=== PATIENT | female | born 2000 | race African-American/Black ===

== ENCOUNTER 2019-08-21 12:37 | Emergency (ER) | payer OTHER ==
[~2019-08-21] VITALS: Ht 165.1 cm; Wt 72.7 kg
[2019-08-21 12:44] VITALS: BP 123/83; PULSE 85; TEMP 98.2
== END 2019-08-21 13:15 | disposition home or self-care (01) ==
LOC: COL.ER 12:37
DX: S60.371A Other superficial bite of right thumb, initial encounter (principal); Y92.009 Unspecified place in unspecified non-institutional (private) residence as the place of occurrence of the external cause; W54.0XXA Bitten by dog, initial encounter